=== PATIENT | male | born 1995 | race Caucasian/White ===

== ENCOUNTER 2025-04-27 23:39 | Inpatient (IN) | payer SELFPAY ==
[~2025-04-27] VITALS: Ht 160 cm; Wt 58.1 kg
[2025-04-27 23:42] VITALS: O2SAT 98
[2025-04-28] MEDS: LEVETIRACETAM 1000MG PREMIX 100 ML IV ONE (00:32)
[2025-04-28 00:49] LABS: BASOPHILS % 0.3 % (0.0-2.0); EOSINOPHILS % 1.3 % (0.0-5.0); HEMATOCRIT. 47.1 % (42.0-52.0); HEMOGLOBIN. 15.8 g/dL (14.0-18.0); LYMPHOCYTES % 19.3 % (20.0-50.0); MEAN PLATELET VOLUME 8.1 fl (7.4-10.4); MONOCYTES % 8.3 % (2.0-8.0); NEUTROPHILS % 70.8 % (40.0-76.0); PLATELET 280 x1000/uL (130-400); RED BLOOD CELL COUNT 5.15 mill/uL (4.7-6.1); RED CELL DISTRIBUTION WIDTH 12.8 % (11.6-14.6)
[2025-04-28 01:01] LABS: CREATININE 1.0 mg/dL (0.6-1.3)
[2025-04-28 01:02] LABS: ETHANOL BLOOD < 10 mg/dL (<10); UREA NITROGEN BLOOD 12 mg/dL (9-23)
[2025-04-28] MEDS ORDERED: NALOXONE HCL 0.4MG/ML VIAL IV PRN (02:15)
[2025-04-28] MEDS ORDERED: IPRATROPIUM/ALBUTEROL 0.5-3(2.5)MG/3ML NEB NEB PRN (02:15)
[2025-04-28] MEDS ORDERED: ACETAMINOPHEN 325MG TABLET PO PRN (02:15)
[2025-04-28] MEDS ORDERED: ONDANSETRON HCL 4MG/2ML INJ IV PRN (02:15)
[2025-04-28] MEDS ORDERED: ZOLPIDEM TARTRATE 5MG TABLET PO PRN (02:15)
[2025-04-28] MEDS ORDERED: HYDROCODONE/ACETAMINOPHEN 5/325MG TABLET PO PRN (02:15)
[2025-04-28] MEDS ORDERED: CLONIDINE 0.1MG TABLET PO PRN (02:15)
[2025-04-28] MEDS ORDERED: LORAZEPAM 2MG/ML UD SYRINGE IV PRN (02:15)
[2025-04-28 02:35] VITALS: BP 106/66; PULSE 66; RESP 18; TEMP 33.8; O2SAT 100
[2025-04-28] MEDS: SODIUM CHLORIDE 0.9% 1,000 ML IV SCH (03:18)
[2025-04-28 04:00] VITALS: BP 105/65; PULSE 69; RESP 20; TEMP 36.4; O2SAT 99
[2025-04-28] MEDS: MVI, ADULT NO.1 10 ML, FOLIC ACID 1 MG, THIAMINE HCL 100 MG in SODIUM CHLORIDE 0.9% 1,0... IV SCH (06:35)
[2025-04-28 08:00] VITALS: BP 99/56; PULSE 64; RESP 18; TEMP 36.3; O2SAT 99
[2025-04-28] MEDS: PANTOPRAZOLE SODIUM 40 MG/VIAL IV SCH (08:54)
[2025-04-28] MEDS: ENOXAPARIN 40MG/0.4ML SYR SUBCUT SCH (08:54)
[2025-04-28 12:00] VITALS: BP 84/48; PULSE 66; RESP 19; TEMP 36.4; O2SAT 98
[2025-04-28 16:00] VITALS: BP 101/56; PULSE 60; RESP 19; TEMP 36.8; O2SAT 98
== END 2025-04-28 17:38 | disposition left against medical advice (07) | DRG 53 ==
LOC: ER 23:39 → 5WST 04-28 01:37 → EDBEDREQ 04-28 01:39 → ENRESERV 04-28 01:46
PROVIDERS: ADMIT Internal Medicine; ATTEND Internal Medicine
DX: R56.9 Unspecified convulsions (principal); Z53.29 Procedure and treatment not carried out because of patient's decision for other reasons; Z79.899 Other long term (current) drug therapy
CPT/HCPCS: 36415; 71045; 80048; 80320; 85025; 93005; 93970; 99291; 99292; J1650; J1953; J2470; J3411; J3490; J7030; G0480